=== PATIENT | male | born 1975 | race Hispanic/Latino ===

== ENCOUNTER 2021-09-23 11:15 | Outpatient (CLI) | payer OTHER ==
--- NOTE | 2021-09-23 14:40 | XRay Report ---
RIGHT HUMERUS 2 VIEWS INDICATION / CLINICAL INFORMATION: HUMERUS RIGHT PAIN. COMPARISON: None available. FINDINGS: BONES / JOINT(S): No acute fracture or subluxation. Previous internal fixation in the humeral shaft w ithout hardware fracture or malalignment. SOFT TISSUES: No significant abnormality. ADDITIONAL FINDINGS: None. IMPRESSION: 1. No acute findings. Signer Name: Mikel Green MD Signed: 09/23/2021 2:36 PM Workstation Name: [id number]
--- NOTE | 2021-09-23 14:41 | XRay Report ---
Bilateral ankle radiographs, 2 views of each ankle provided. HISTORY: Bilateral ankle pain COMPARISON: None FINDINGS: Right ankle: Small ossific densities at the distal tips of the medial and lateral malleoli, compatibl e sequela of prior trauma. No acute fracture or malalignment. 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 Soft tissues are unremarkable. Left ankle: No acute fracture or malalignment. Mild tibiotalar osteoarthritis. No focal soft tissue a bnormality. Signer Name: Milton Nam MD Signed: 09/23/2021 2:36 PM Workstation Name: [email or web address]
== END 2021-09-23 11:16 | disposition home or self-care (01) ==
LOC: XRAY 11:15
PROVIDERS: ATTEND Internal Medicine
DX: M19.072 Primary osteoarthritis, left ankle and foot (principal); M19.071 Primary osteoarthritis, right ankle and foot

== ENCOUNTER 2022-01-15 08:16 | Outpatient (CLI) | payer OTHER ==
--- NOTE | 2022-01-15 10:10 | XRay Report ---
BILATERAL KNEES 4 VIEWS INDICATION / CLINICAL INFORMATION: Z02.71, DISABILITY, ARTHRITIS COMPARISON: None available. FINDINGS: BONES and JOINT(S): No acute fracture or subluxation. No significant arthritis. SOFT TISSUES: No significant abnormality. ADDITIONAL FINDINGS: None. IMPRESSION: No significant arthritis of the knees. No other significant abnormality. Signer Name: Raudel Martinez MD Signed: 01/15/2022 10:06 AM Workstation Name: [email or web address]
--- NOTE | 2022-01-15 10:10 | XRay Report ---
BILATERAL HANDS 4 VIEWS INDICATION / CLINICAL INFORMATION: Z02.71, DISABILITY, ARTHRITIS COMPARISON: None available. FINDINGS: BONES and JOINT(S): No acute fracture or subluxation. There is evidence of remote trauma to the right fifth metacarpal. No significant arthritic changes are seen in the right hand. Mild degenerative art hrosis is seen at the interphalangeal joint of the left thumb and at the PIP joint of the left little finger. No other significant arthritic changes in the right hand. SOFT TISSUES: No significant abnormality. ADDITIONAL FINDINGS: None. IMPRESSION: 1. 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 2. No significant right hand arthritis. 3. Additional findings as above. Signer Name: Raudel Martinez MD Signed: 01/15/2022 10:05 AM Workstation Name: [email or web address]
== END 2022-01-15 08:17 | disposition home or self-care (01) ==
LOC: XRAY 08:16
PROVIDERS: ATTEND Internal Medicine
DX: Z02.71 Encounter for disability determination (principal); M19.042 Primary osteoarthritis, left hand